=== PATIENT | male | born 1975 | race Caucasian/White ===

== ENCOUNTER → 2021-11-08 08:18 | Outpatient (CLI) | payer OTHER, SELFPAY ==
--- NOTE | 2021-11-08 08:23 | DI.MRI.S_ITS ---
PROCEDURE: MR SHOULDER LT W CON INDICATIONS: PAIN IN LEFT SHOULDER TECHNIQUE: After the administration of 12 mL of dilute intra-articular Gadolinium contrast, oblique coronal T1 and T2 spin echo with fat saturation, oblique sagittal T1 spin echo with and without fat saturation, oblique sagittal T2 fast spin echo with fat saturation, axial T1 spin echo with fat saturation through the shoulder. COMPARISON: None. FINDINGS: Image quality: Excellent. Rotator cuff: Tendinosis and low-grade articular and bursal surface partial thickness tear involving distal supraspinatus at its insertion on the humeral head is seen extending to musculotendinous junction. Distal infraspinatus tendinosis is seen. Distal subscapularis tendon is intact. No full-thickness rotator cuff tendon rupture. No significant rotator cuff muscle atrophy on sagittal images. Bones and bursae: No bone marrow contusions or fractures. Mild acromioclavicular joint osteoarthritic changes are seen with joint space narrowing and subchondral sclerosis. Capsule and soft tissues: Signal abnormality and contour irregularity involving superior anterior labrum at 12 to 1 o'clock position is seen consistent with superior anterior labral tear. The glenohumeral ligaments appear intact. The long head of the biceps tendon demonstrates normal location and morphology. The rotator interval appears normal, without fibrosis. The coracohumeral ligament is of normal thickness. No intra-articular bodies. IMPRESSION: 1. Tendinosis and low-grade articular and bursal surface partial thickness tear involving distal supraspinatus extending to musculotendinous junction. Distal infraspinatus tendinosis. No full-thickness rotator cuff tendon rupture. 2. Mild acromioclavicular joint osteoarthritis. No fracture or dislocation. No intra-articular loose bodies. 3. Suggestion of superior anterior labral tear at 12 to 1 o'clock position. Dictated by: Luisito Cagle M.D. on 11/08/2021 at 10:21 Approved by: Luisito Cagle M.D. on 11/08/2021 at 10:23
--- NOTE | 2021-11-08 08:23 | DI.RAD.S_ITS ---
PROCEDURE: FL SHOULDER INJECTION MR/CT LT INDICATIONS: PAIN IN LEFT SHOULDER COMPARISON: None. TECHNIQUE: The indications, alternatives, benefits, risks, and complications of the procedure were explained to the patient. Written informed consent was obtained and placed in the chart. The shoulder was examined fluoroscopically and a site for needle placement chosen for entry into the glenohumeral joint from an anterior approach. The skin was prepped and draped in a sterile fashion, and 1% lidocaine infiltrated from skin down to joint capsule. A spinal needle was inserted into the glenohumeral joint, and a small amount of iodinated contrast media injected to confirm intra-articular placement of the needle tip. This was followed by approximately 12 mL dilute solution of a gadolinium containing MR contrast agent. The needle was removed and a dressing was applied. The patient was given postprocedural instructions and sent to the MR suite for MR imaging. FINDINGS: A single fluoroscopic spot image demonstrates intra-articular location of injected iodinated contrast. IMPRESSION: Successful fluoroscopically guided administration of dilute Gadolinium solution into the shoulder joint for MR arthrogram. Dictated by: Kristina Correa MD, PhD on 11/08/2021 at 11:27 Approved by: Kristina Correa MD, PhD on 11/08/2021 at 11:27
== END ==
DX: M75.112 Incomplete rotator cuff tear or rupture of left shoulder, not specified as traumatic (principal); M19.012 Primary osteoarthritis, left shoulder; M25.512 Pain in left shoulder
CPT/HCPCS: 23350; 73222